=== PATIENT | female | born 1945 | race Caucasian/White ===

== ENCOUNTER → 2017-05-14 07:58 | Outpatient (CLI) | payer MEDICARE ==
[2017-05-14 08:38] LABS: CREATININE - SERUM 1.5 mg/dL (0.6-1.3)
== END | disposition home or self-care (01) ==
LOC: D.LAB 05-13 09:15
PROVIDERS: Family Medicine
DX: R93.8 Abnormal findings on diagnostic imaging of other specified body structures (principal)

== ENCOUNTER → 2017-10-28 09:56 | Outpatient (CLI) | payer MEDICARE | END | disposition home or self-care (01) | LOC: D.MRI 09:56 | DX: K86.2 Cyst of pancreas (principal) ==

== ENCOUNTER 2018-06-17 12:27 | Inpatient (IN) | payer MEDICARE, BC ==
[~2018-06-17] VITALS: Ht 152.4 cm; Wt 87.0 kg
[2018-06-17] MEDS ORDERED: LEVOTHYROXINE137 MCG PO (14:43)
[2018-06-17] MEDS ORDERED: AMIODARONE HCL200 MG PO (14:44)
[2018-06-17] MEDS ORDERED: CALAN80 MG PO (14:44)
[2018-06-17] MEDS ORDERED: LEVOTHYROXINE100 MCG (14:45)
[2018-06-17 14:46] VITALS: BP 140/54; BMI 29.3
[2018-06-17 16:00] VITALS: BP 157/59
[2018-06-17 16:49] LABS: HEMATOCRIT 39.6 % (36.0-48.0); MCHC 32.8 g/dL (31.0-37.0); MCV 94.3 fL (80.0-100.0); MEAN PLATELET VOLUME 10.7 fL (7.4-10.4); PLATELET COUNT 312 10x3/uL (130-400); WBC 23.4 10x3/uL (4.8-10.8)
[2018-06-17 16:52] LABS: APTT 38.5 SECONDS (22.8-39.4); INR 1.32 (0.85-1.17); PROTIME 15.8 SECONDS (11.6-15.0)
[2018-06-17 16:53] LABS: D-DIMER-QUANTITATIVE 1.22 ug/mLFEU (0.20-0.54)
[2018-06-17 17:21] LABS: EOSINOPHILS 1 % (0-7); LYMPHOCYTES 11 % (15-50); MONOCYTES 1 % (2-11); NEUTROPHILS 87 % (40-80); PLATELET ESTIMATE NORMAL
[2018-06-17 18:42] LABS: ALBUMIN 2.4 g/dL (3.4-5.0); ANION GAP 16.9 mmol/L (8-16); BILIRUBIN - TOTAL 0.7 mg/dL (0.2-1.3); CALCIUM 7.9 mg/dL (8.5-10.1); CARBON DIOXIDE 22.2 mmol/L (21.0-32.0); CREATININE - SERUM 1.8 mg/dL (0.6-1.3); POTASSIUM - SERUM 4.1 mmol/L (3.5-5.1); PROTEIN - SERUM 5.1 g/dL (6.4-8.2)
--- NOTE | 2018-06-17 21:03 | NUR ---
REC'D AT [facility] OF SHIFT.IN BED FAMILY AT BEDSIDE PLAYING A GAME DENIES ANY DISCOMFORT AT PRESENT TIME WILL CONTINUE TO MONITOR FOR ANY CHGES. AND FOLLOW CURRENT PLAN OF CARE.
[2018-06-17 21:55] VITALS: BP 151/67
[2018-06-18] VITALS: BP 123/37
--- NOTE | 2018-06-18 05:17 | NUR ---
A/OX4. BREATHING EVEN AND SHALLOW. SOB. DENIES NEEDS AT THIS TIME. WILL CONTINUE POC.
[2018-06-18 05:38] VITALS: BP 146/47
[2018-06-18 08:10] VITALS: BP 140/86
[2018-06-18 10:12] LABS: HEMATOCRIT 34.8 % (36.0-48.0); HEMOGLOBIN 11.7 g/dL (12-16); MCH 30.8 pg (26.0-34.0); MCHC 33.6 g/dL (31.0-37.0); MCV 91.6 fL (80.0-100.0); MEAN PLATELET VOLUME 10.3 fL (7.4-10.4); PLATELET COUNT 303 10x3/uL (130-400); RDW 15.5 % (11.5-14.5); WBC 24.2 10x3/uL (4.8-10.8)
[2018-06-18 10:24] LABS: CALCIUM 7.8 mg/dL (8.5-10.1); CARBON DIOXIDE 20.5 mmol/L (21.0-32.0); CREATININE - SERUM 1.7 mg/dL (0.6-1.3); POTASSIUM - SERUM 3.5 mmol/L (3.5-5.1)
[2018-06-18 11:11] LABS: LYMPHOCYTES 6 % (15-50); MONOCYTES 3 % (2-11); NEUTROPHILS 78 % (40-80); PLATELET ESTIMATE NORMAL; TOXIC GRANULATION OCC
--- NOTE | 2018-06-18 11:57 | NUR ---
PT LYING IN BED, IV IN LEFT WRIST IS POSITIONAL, ASSISTED PT TO RESTROOM WITH LITTLE ASSIST, NO NEEDS VOICED, CONTINUE WITH PLAN OF CARE
[2018-06-18 12:16] VITALS: BP 128/39
--- NOTE | 2018-06-18 14:58 | NUR ---
PT C/O REDNESS AND PAIN IN IV IN LEFT HAND, PT IS A HARD STICK AND VASCULAR ACCESS NURSE STARTED IV IN LEFT HAND/WRIST YESTERDAY, STARTED PT ABX IV YESTERDAY AND REDNESS AND PAIN STARTED WITH IV YESTERDAY, ASSESSED PT ARM AND LOWERED RATE TO 75, SPOKE WITH KRISTINE AND LOWERED IV RATE AGAIN TO 50 UNTIL ARRIVES. CONTINUE WITH PLAN OF CARE
[2018-06-18 16:09] VITALS: BP 137/61
[2018-06-18 20:00] VITALS: BP 161/61
[2018-06-19] VITALS: BP 169/87
--- NOTE | 2018-06-19 02:58 | NUR ---
PT IN BED RESTING QUIETLY WITH FAMILY MEMBER AT BEDSIDE. ALERT AND ORIENTED X4. RESPIRATIONS EVEN AND UNLABORED. NO VISUAL CUES OF DISTRESS NOTED. DENIES ANY OTHER NEEDS AT THIS TIME. BED LOW, SIDE RAILS UP X2. CALL LIGHT IN REACH. WILL CONTINUE TO MONITOR.
[2018-06-19 04:00] VITALS: BP 137/63
[2018-06-19 06:25] LABS: ANION GAP 13.9 mmol/L (8-16); CALCIUM 7.9 mg/dL (8.5-10.1); CREATININE - SERUM 1.5 mg/dL (0.6-1.3); POTASSIUM - SERUM 3.9 mmol/L (3.5-5.1); THYROID STIMULATING HORMONE 8.79 uIU/mL (0.36-3.74)
[2018-06-19 06:35] LABS: HEMATOCRIT 32.5 % (36.0-48.0); MCH 30.6 pg (26.0-34.0); MCHC 33.8 g/dL (31.0-37.0); MCV 90.5 fL (80.0-100.0); MEAN PLATELET VOLUME 10.2 fL (7.4-10.4); PLATELET COUNT 276 10x3/uL (130-400); RBC 3.59 10x6/uL (4.00-5.40); RDW 15.6 % (11.5-14.5)
[2018-06-19 08:03] LABS: ANISOCYTOSIS OCC; HYPOCHROMASIA OCC; LYMPHOCYTES 5 % (15-50); MONOCYTES 9 % (2-11); NEUTROPHILS 77 % (40-80); PLATELET ESTIMATE NORMAL
[2018-06-19 08:29] VITALS: BP 126/53
--- NOTE | 2018-06-19 08:34 | NUR ---
PT AOX4 RESP EVEN AND NONLABORED PT DENIES NEEDS AT THIS TIME IV TO LEFT WRIST PATENT AND INTACT AT THIS TIME SRX2 BED AT LOWEST SETTING CALL LIGHT WITHIN REACH WILL CONTINUE TO MONITOR
[2018-06-19 11:42] VITALS: BP 114/49
[2018-06-19 16:13] VITALS: BP 124/85
[2018-06-19 16:15] LABS: APPEARANCE CLEAR (CLEAR); COLOR YELLOW (YELLOW)
[2018-06-19 16:16] LABS: BILIRUBIN NEGATIVE (NEGATIVE); GLUCOSE NEGATIVE (NEGATIVE); KETONE NEGATIVE (NEGATIVE); NITRITE NEGATIVE (NEGATIVE); PROTEIN NEGATIVE (NEGATIVE); SPECIFIC GRAVITY 1.025 (1.005-1.020); UROBILINOGEN NORMAL (NORMAL)
[2018-06-19 16:26] LABS: RED CELLS - URINE 0-5 /hpf (0-5); WHITE CELLS - URINE 0-5 /hpf (0-5)
[2018-06-19 16:27] LABS: BACTERIA MANY /hpf (NONE SEEN)
[2018-06-19 20:28] VITALS: BP 122/45
--- NOTE | 2018-06-20 03:30 | NUR ---
PT RESTING QUIETLY, EYES CLOSED. RESP EVEN, UNLABORED. NO DISTRESS NOTED. CONTINUE HUNTER'S PLAN OF CARE.
[2018-06-20 04:58] VITALS: BP 125/53
[2018-06-20 07:36] LABS: BASOPHILS 0.1 % (0-2); EOSINOPHILS 0.5 % (0-7); HEMATOCRIT 33.8 % (36.0-48.0); HEMOGLOBIN 11.3 g/dL (12-16); IMMATURE GRANULOCYTES 0.5 % (0-5); LYMPHOCYTES 4.4 % (15-50); MCH 30.8 pg (26.0-34.0); MCHC 33.4 g/dL (31.0-37.0); MCV 92.1 fL (80.0-100.0); MEAN PLATELET VOLUME 10.6 fL (7.4-10.4); MONOCYTES 6.9 % (2-11); NEUTROPHILS 87.6 % (40-80); PLATELET COUNT 298 10x3/uL (130-400); RBC 3.67 10x6/uL (4.00-5.40); RDW 15.8 % (11.5-14.5); WBC 24.7 10x3/uL (4.8-10.8)
[2018-06-20 07:52] LABS: ANION GAP 16.7 mmol/L (8-16); CALCIUM 7.8 mg/dL (8.5-10.1); CARBON DIOXIDE 21.5 mmol/L (21.0-32.0); CREATININE - SERUM 1.5 mg/dL (0.6-1.3); POTASSIUM - SERUM 4.2 mmol/L (3.5-5.1)
--- NOTE | 2018-06-20 08:00 | NUR ---
ASSESSMENT PER FLOW SHEET. PT IS WITHOUT DISTRESS.CALL LIGHT IN REACH
[2018-06-20 08:34] VITALS: BP 132/47
[2018-06-20 15:28] VITALS: BP 126/54
--- NOTE | 2018-06-20 18:00 | NUR ---
IV LEFT FOREARM VERY TENDER AND NOT FLUSHING WELL. DCD WITH CATH TIP INTACT
--- NOTE | 2018-06-20 18:08 | NUR ---
IV ATTEMPTED TO LEFT ARM X2 STICKS USING ASEPTIC TECH.
--- NOTE | 2018-06-20 19:47 | NUR ---
RECEIVED REPORT, ASSUMED CARE, ASSESSMENT COMPLETE, DENIES NEEDS, FAMILY AT BEDSIDE, CALL LIGHT IN REACH, BED LOWEST POSIITON, SITTING UP ON BEDSIDE, WILL CONTINUE TO MONITOR
--- NOTE | 2018-06-20 22:30 | NUR ---
PT SATING 91% 7L HFNC, HELPED TO BATHROOM AND BACK TO BED, RECHECKED O2 SAT NOW SATING AT 71%, PT SHORT OF BREATH, STATED HAVING A HARD TIME CATCHING HER BREATH, RESPIRATORY CALLED STATED SHE'D BE DOWN SHORTLY TO GIVE BREATHING TREATMENT
--- NOTE | 2018-06-20 23:00 | NUR ---
RESPIRATORY CHECKING PT, SATING 87% NOW PLACED ON 11L HFNC, BREATHING TREATMENT GIVEN
--- NOTE | 2018-06-20 23:20 | NUR ---
RECHECKED O2 SAT NOW SATING 97%, WILL CONTINUE TO MONITOR
--- NOTE | 2018-06-20 23:35 | NUR ---
CALLED RADIOLOGY ABOUT X-RAY CONCERNING CVL PLACEMENT, FILM HAS NOT BEEN SENT TO BE READ, STATED THEY WOULD SEND IT NOW
[2018-06-21] VITALS (23 sets, daily range): BP systolic 101–126; BP diastolic 4–78
--- NOTE | 2018-06-21 | NUR ---
DR GONZALEZ STATED HE REVIEWED THE XRAY, WE CAN USE IT NOW
--- NOTE | 2018-06-21 00:20 | NUR ---
CALLED DR JHA, PT SATING 78% WHILE LYING IN BED ON 11L HFNC, HE ORDERED A ABG, AWAITING RESULTS
--- NOTE | 2018-06-21 00:45 | NUR ---
CALLED ABG RESULTS TO DR JHA, ORDERED 40MG LASIX IV NOW, TRANSFER TO ICU, PLACE ON BIPAP
--- NOTE | 2018-06-21 01:46 | NUR ---
PATIENT ARRIVED TO ICU ROOM 2313 ACCOMPANINED BY HOSPITAL STAFF, PATIENT TRANSFERED TO ICU BED, ALL MONITORING EQUIPMENT ATTACHED PER HOSPITAL PROTOCOL.
--- NOTE | 2018-06-21 02:00 | NUR ---
16F CARLTON INSERTED FOR ACCURATE I&O RECORDS, 250 CC CLEAR YELLOW IMMEDIATE URINE OUTPUT
--- NOTE | 2018-06-21 03:00 | NUR ---
SHIFT ASSESSMENT COMPLETE, PER NURSING FLOWSHEET, BIPAP IN PLACE @ 90%, WILL CONTINUE TO MONITOR
--- NOTE | 2018-06-21 05:00 | NUR ---
PATIENT REPOSITIONED, VSS, NO OTHER NEEDS VOICED OR NOTED AT THIS TIME
[2018-06-21 06:46] LABS: BASOPHILS 0.1 % (0-2); EOSINOPHILS 0.2 % (0-7); HEMATOCRIT 33.9 % (36.0-48.0); HEMOGLOBIN 11.4 g/dL (12-16); IMMATURE GRANULOCYTES 0.6 % (0-5); LYMPHOCYTES 3.6 % (15-50); MCH 30.6 pg (26.0-34.0); MCHC 33.6 g/dL (31.0-37.0); MCV 91.1 fL (80.0-100.0); MEAN PLATELET VOLUME 10.2 fL (7.4-10.4); MONOCYTES 7.2 % (2-11); NEUTROPHILS 88.3 % (40-80); PLATELET COUNT 291 10x3/uL (130-400); RBC 3.72 10x6/uL (4.00-5.40); RDW 15.8 % (11.5-14.5); WBC 26.2 10x3/uL (4.8-10.8)
[2018-06-21 06:56] LABS: ANION GAP 14.9 mmol/L (8-16); CALCIUM 7.5 mg/dL (8.5-10.1); CREATININE - SERUM 1.8 mg/dL (0.6-1.3); POTASSIUM - SERUM 3.9 mmol/L (3.5-5.1)
--- NOTE | 2018-06-21 07:00 | NUR ---
RECEIVED PATIENT AT THIS TIME. BEDSIDE SHIFT REPORT COMPLETE. SHIFT ASSESSMENT COMPLETE PER FLOWSHEET. VSS, WILL MONITOR CLOSELY.
--- NOTE | 2018-06-21 09:00 | NUR ---
PT FAMILY PRESENT AT THE BEDSIDE. UPDATE GIVEN. VSS, WILL CONTINUE CLOSE ICU OBSERVATION.
--- NOTE | 2018-06-21 12:17 | NUR ---
PT FAMILY PRESENT IN THE ROOM. UPDATE GIVEN. PT PLACED ON HIGH FLOW NASAL CANNULA TO EAT LUNCH.
--- NOTE | 2018-06-21 13:00 | NUR ---
PATIENT RESTING COMFORTABLY WITH EYES CLOSED AT THIS TIME. FAMILY IS PRESENT AT THE BEDSIDE. VSS, WILL CONTINUE TO MONITOR CLOSELY.
--- NOTE | 2018-06-21 15:00 | NUR ---
REASSESSMENT COMPLETE PER FLOWSHEET. NO ACUTE CHANGES NOTED AT THIS TIME. PT REESTING COMFORTABLY. VSS, WILL CONTINUE TO MONITOR CLOSELY.
--- NOTE | 2018-06-21 17:15 | NUR ---
PT FAMILY PRESENT AT THE BEDSIDE. PATIENT TURNED FOR COMFORT AT THIS TIME. VSS, WILL CONTINUE TO MONITOR CLOSELY.
--- NOTE | 2018-06-21 19:30 | NUR ---
ASSESSMENT COMPLETE PER NURSING FLOWSHEET, PATIENT REPOSITIONED, BIPAP MASK PLACED BACK ON THIS PATIENT AT 60%, C/L IN REACH
--- NOTE | 2018-06-21 21:00 | NUR ---
PATIENT REPOSITIONED, BIPAP MASK REMAINS IN PLACE AT 60% TO MAINTAIN ADEQUATE OXYGENATION, CONTINUE POC
--- NOTE | 2018-06-21 23:00 | NUR ---
RE-ASSESSMENT COMPLETE, PER NURSING FLOWSHEET, PATIENT REPOSITIONED, ORAL CARE PROVIDED, BIPAP O2 INCREASED TO 80% SECONDARY TO DROPPING OXYGEN LEVEL, WILL CONTINUE TO MONITOR
[2018-06-22] VITALS (24 sets, daily range): BP systolic 89–136; BP diastolic 43–93; BMI 32.0
--- NOTE | 2018-06-22 01:00 | NUR ---
PATIENT REPOSITIONED, CARLTON CARE PROVIDED, NO OTHER NEEDS VOICED OR NOTED AT THIS TIME
--- NOTE | 2018-06-22 03:00 | NUR ---
RE-ASSESSMENT COMPLETE, PATIENT REPOSITIONED, ORAL CARE PROVIDED, C/L IN REACH
--- NOTE | 2018-06-22 05:00 | NUR ---
PATIENT REPOSITIONED, PARTIAL LINEN CHANGE, O2 PROVIDED, BIPAP MASK ADJUSTED, O2 LEVEL DECREASED TO 70% BASED ON THIS A.M. ABG, CONTINUE POC
[2018-06-22 05:07] LABS: BASOPHILS 0.2 % (0-2); EOSINOPHILS 0.3 % (0-7); HEMATOCRIT 32.9 % (36.0-48.0); HEMOGLOBIN 11.1 g/dL (12-16); IMMATURE GRANULOCYTES 0.5 % (0-5); LYMPHOCYTES 3.2 % (15-50); MCH 30.2 pg (26.0-34.0); MCHC 33.7 g/dL (31.0-37.0); MCV 89.4 fL (80.0-100.0); MEAN PLATELET VOLUME 10.2 fL (7.4-10.4); MONOCYTES 7.6 % (2-11); NEUTROPHILS 88.2 % (40-80); PLATELET COUNT 267 10x3/uL (130-400); RBC 3.68 10x6/uL (4.00-5.40); RDW 15.3 % (11.5-14.5); WBC 25.6 10x3/uL (4.8-10.8)
[2018-06-22 05:17] LABS: ANION GAP 15.4 mmol/L (8-16); CALCIUM 7.3 mg/dL (8.5-10.1); CARBON DIOXIDE 22.1 mmol/L (21.0-32.0); POTASSIUM - SERUM 3.5 mmol/L (3.5-5.1)
--- NOTE | 2018-06-22 07:45 | NUR ---
SHIFT REPORT RECEIVED. PT ON BIPAP AT 60% WITH O2 SAT 96%. HR IN 60S NORMAL SINUS. BP STABLE. NO FEVER. BRUISING NOTED ON BILAT UE. HAS RIJ WITH ABX INFUSING AT THIS TIME. CARLTON IN PACE WITH YELLOW URINE NOTED. PT REPORTS HAVING DIFFICULTY BREATHING BUT IS WANTING BIPAP OFF. SHIFT ASSESSMENT COMPLETED. PULLED UP AND REPOSITIONED FOR COMFORT. WILL CONTINUE TO MONITOR.
--- NOTE | 2018-06-22 08:11 | NUR ---
PT TOOK OFF BIPAP FOR ABOUT 10MINUTES TO GIVE HER SOMETHING TO DRINK AND TO EAT. SHE WAS ABLE TO EAT A FEW BITES OF EGSS AND DRANK 120ML OF ORANGE JUICE. PT DESATURATED TO 70S. PT PLACED BACK ON BIPAP. SHE STATED THAT SHE DIDN'T WANT THE BIPAP BACK ON. EXPLAINED TO PT THAT THE BIPAP WAS HELPING HER BREATH. WILL CONTINUE TO MONITOR.
--- NOTE | 2018-06-22 09:49 | NUR ---
BIPAP REMOVED FOR 0900 MEDICATIONS. PT DESATURED INTO LOW 80S. BIPAP PLACED BACK. DAUGHTER AT BEDSIDE. WILL COTNINUE TO MONITOR.
--- NOTE | 2018-06-22 12:34 | NUR ---
TOOK OFF BIPAP FOR LUNCH. PT ABLE TO EAT A FEW BITES. O2 SAT DROPPED TO LOW 80S. PLACED BACK ON BIPAP. DAUGHTER AT BEDSIDE. DAUGHTER SPOKE WITH DR. MURPHY TODAY. PULMONOLOGY HAS BEEN CONSULTED.
--- NOTE | 2018-06-22 14:11 | NUR ---
BIPAP REMOVED FOR FEW MINUTES TO ALLOW PT TO HAVE SOME ICE WATER. MOUTH WAS PROVIDED TO HAVE PT SINCE MOUTH OUT. DAUGHTER AT BEDSIDE. NO FURTHER NEEDS AT THIS TIME. WILL CONTINUE TO MONITOR.
--- NOTE | 2018-06-22 15:08 | NUR ---
DR. EVERETT AT BEDSIDE. WANTS PT ON HIGH FLOW NC FOR MEALS. PT RESTING COMFORTABLY. WILL CONTINUE TO MONITOR.
--- NOTE | 2018-06-22 15:48 | NUR ---
TROUGH DRAWN INCORRECTLY. WILL TRY AGAIN PRIOR TO MIDNIGHT DOSE TONIGHT
--- NOTE | 2018-06-22 16:50 | NUR ---
BIPAP REMOVED FOR FEW MINUTES TO GIVE PT A DRINK OF WATER.
--- NOTE | 2018-06-22 17:46 | NUR ---
TOOK OFF BIPAP AT THIS TIME TO EAT DINNER. ATE A FEW BITES OF BROCCOLI, PORK CHOP, RISE, ROLL AND CAKE. DESATED TO LOW 80S. PLACED BACK ON BIPAP AT 50%. FAMILY AT BEDSIDE AT THIS TIME. WILL CONTINUE TO MONITOR.
--- NOTE | 2018-06-22 17:48 | MORECARE ---
CASE MANAGEMENT DISCHARGE SUMMARY PATIENT: TAVO HICKEY UNIT: [id number] ADM DATE: 06/17/18 AGE: 73 : 44 SEX: F [facility] [address] AUTHOR: [place]S PHYSICIAN: REFERRING PHYSICIAN: PETROS JHA MD DATE OF SERVICE: 06/22/18 Discharge Plan Patient Name: TAVO HICKEY Facility: [facility]:[place] : 1945 Planned Disposition: Anticipated Discharge Date: Discharge Date: Expected LOS: Initial Reviewer: [email or web address] Initial Review Date: 06/22/2018 Generated: 06/22/18 6:48 pm Patient Name: TAVO HICKEY Page [id number] at 0341 All edits/amendments must be made on the electronic document DICTATION DATE: 06/22/181747 COMPUTERIZED MILL MILL RECORDER: JONG 06/22/181747 RPT#: [id number] NC DATE: STATUS: ADM IN [facility] [address] [place] [address] END OF REPORT
--- NOTE | 2018-06-22 17:56 | MORECARE ---
CASE MANAGEMENT DISCHARGE SUMMARY PATIENT: TAVO HICKEY UNIT: [id number] ADM DATE: 06/17/18 AGE: 73 : 44 SEX: F ROOM/BED: D.[facility] AUTHOR: [place]S PHYSICIAN: REFERRING PHYSICIAN: PETROS JHA MD DATE OF SERVICE: 06/22/18 Discharge Plan Patient Name: TAVO HICKEY [facility] : 1945 Planned Disposition: Anticipated Discharge Date: Discharge Date: Expected LOS: Initial Reviewer: [email or web address] Initial Review Date: 06/22/2018 Generated: 06/22/18 6:55 pm DCPIA - Discharge Planning Initial Assessment Updated by [email or web address]: Monika Boyle on 06/22/18 5:52 pm * Is the patient Alert and Oriented? Yes * How many steps to enter\exit or inside your home? * PCP KB * Pharmacy [facility] * Preadmission Environment Home Alone * ADLs Independent * Equipment None * List name and contact numbers for known caregivers / representatives who currently or will assist patient after discharge: JEANMARIE MONTE - WILFREDO - [phone] * Verbal permission to speak to the caregivers and representatives has been obtained from the patient. N/A * Community resources currently utilized None * Additional services required to return to the preadmission environment? No * Can the patient safely return to the preadmission environment? Yes * Has this patient been hospitalized within the prior 30 days at any hospital? No Last DP export: 06/22/18 4:48 pm Patient Name: TAVO HICKEY Page [phone] at 1756 All edits/amendments must be made on the electronic document DICTATION DATE: 06/22/181754 COMMIS CHEF: JONG 06/22/181754 RPT#: [id number] DC DATE: STATUS: ADM IN [facility] [address] [place] [address] END OF REPORT
--- NOTE | 2018-06-22 18:12 | MORECARE ---
CASE MANAGEMENT DISCHARGE SUMMARY PATIENT: TAVO HICKEY UNIT: [id number] ADM DATE: 06/17/18 AGE: 73 : 44 SEX: F ROOM/BED: D.2313 AUTHOR: JEANA,DOC PHYSICIAN: REFERRING PHYSICIAN: PETROS JHA MD DATE OF SERVICE: 06/22/18 Discharge Plan Patient Name: TAVO HICKEY Facility: [facility]:[place] : 1945 Planned Disposition: Anticipated Discharge Date: Discharge Date: Expected LOS: Initial Reviewer: [email or web address] Initial Review Date: 06/22/2018 Generated: 06/22/18 7:11 pm Comments DCP- Discharge Planning Updated by [email or web address]: Monika Boyle on 06/22/18 5:[address] LATE ENTRY 06/22/18 @ 1215 Patient Name: TAVO HICKEY Admission Status: Urgent Accout number: [id number] Admission Date: 06-17-2018 : 1945 Admission Diagnosis:PNEUMONIA, UNSPECIFIED ORGANISM Attending: PETROS JHA Current LOS: 5 Anticipated DC Date: Planned Disposition: Primary Insurance: MEDICARE A & B Discharge Planning Comments: CM met with patient and daughter at bedside. Patient is currently on BIPAP and unable to speak but patients daughter Jeanmarie was able to answer intake questions. Patient lived at home with spouse prior to admission until recently. Patients spouse has dementia and [facility] [place]. Patient will be going home alone when discharged. Jeanmarie states she has just worn herself out trying to take care of him. Patient may need some services upon discharge or possibly home . CM will continue to follow and assist as needed with discharge planning / needs. Slip Dumper: Monika Boyle DCPIA - Discharge Planning Initial Assessment Updated by [email or web address]: Monika Boyle on 06/22/18 5:52 pm * Is the patient Alert and Oriented? Yes * How many steps to enter\exit or inside your home? * PCP KB * Pharmacy [facility] * Preadmission Environment Home Alone * ADLs Independent * Equipment None * List name and contact numbers for known caregivers / representatives who currently or will assist patient after discharge: JEANMARIE MONTE - DAUGHTER - [phone] * Verbal permission to speak to the caregivers and representatives has been obtained from the patient. N/A * Community resources currently utilized None * Additional services required to return to the preadmission environment? No * Can the patient safely return to the preadmission environment? Yes * Has this patient been hospitalized within the prior 30 days at any hospital? No Last DP export: 06/22/18 4:55 pm Patient Name: TAVO HICKEY Page 34442 at 1812 All edits/amendments must be made on the electronic document DICTATION DATE: 06/22/181810 MACHINE PRESSER: JONG 06/22/181810 RPT#: [id number] DC DATE: STATUS: ADM IN [facility] [address] [place] [address] END OF REPORT
[2018-06-23] VITALS (22 sets, daily range): BP systolic 99–1202; BP diastolic 46–80; Ht 152.4 cm; Wt 87.0 kg
[2018-06-23 06:00] LABS: BASOPHILS 0.2 % (0-2); EOSINOPHILS 1.1 % (0-7); HEMATOCRIT 32.2 % (36.0-48.0); HEMOGLOBIN 11.2 g/dL (12-16); IMMATURE GRANULOCYTES 0.8 % (0-5); LYMPHOCYTES 4.2 % (15-50); MCH 30.9 pg (26.0-34.0); MCHC 34.8 g/dL (31.0-37.0); MCV 88.7 fL (80.0-100.0); MEAN PLATELET VOLUME 10.3 fL (7.4-10.4); MONOCYTES 6.9 % (2-11); NEUTROPHILS 86.8 % (40-80); PLATELET COUNT 264 10x3/uL (130-400); RBC 3.63 10x6/uL (4.00-5.40); RDW 15.6 % (11.5-14.5); WBC 25.4 10x3/uL (4.8-10.8)
[2018-06-23 06:08] LABS: ALBUMIN 1.5 g/dL (3.4-5.0); ANION GAP 15.6 mmol/L (8-16); BILIRUBIN - TOTAL 2.12 mg/dL (0.2-1.3); CALCIUM 7.5 mg/dL (8.5-10.1); CARBON DIOXIDE 20.9 mmol/L (21.0-32.0); CREATININE - SERUM 1.9 mg/dL (0.6-1.3); POTASSIUM - SERUM 3.5 mmol/L (3.5-5.1); PROTEIN - SERUM 4.7 g/dL (6.4-8.2)
--- NOTE | 2018-06-23 16:44 | OP ---
PATIENT NAME: TAVO HICKEY MEDICAL RECORD: [id number] :[birth year] LOCATION:[facility] D.2313 ADMISSION DATE:06/17/18 SURGEON: TRICIA GONZALEZ MD DATE OF OPERATION: 06/20/2018 PREOPERATIVE DIAGNOSIS: Pneumonia in need of IV access for IV antibiotics. POSTOPERATIVE DIAGNOSIS: Pneumonia in need of IV access for IV antibiotics. PROCEDURE: Insertion of right internal jugular triple lumen central venous catheter. SURGEON: Tricia Gonzalez MD INSURANCE INSPECTOR: None. BLOOD LOSS: Minimal. ANESTHESIA: Local. COMPLICATIONS: None. The risks, possible complications and alternatives to the procedure were discussed with the patient. She elects to proceed. The entire procedure was performed in the presence of a female nurse. OPERATIVE COURSE: The patient was positioned in the Trendelenburg position. The right neck was sterilely prepped and draped. A local anesthetic was used to infiltrate the skin and subcutaneous tissues at the base of the right neck. The right internal jugular vein was percutaneously accessed in an antegrade fashion. A guidewire passed easily. A small skin milana was accomplished. A vessel dilator was used to dilate a subcutaneous tract. A 16-cm triple lumen central venous catheter was inserted to the hub. It was sutured in place times 3. All lumens flushed easily and aspirated dark, nonpulsatile blood. A stat portable chest x-ray is pending. TRANSINT:[id number] Voice Confirmation ID: [id number] DOCUMENT ID: [id number] TRICIA GONZALEZ MD at 1644 CC: PETROS JHA MD [id number] DICTATION DATE: 06/20/182211 BICYCLE MESSENGER: 06/20/182230 ADM IN [facility] [address] [place] [address]
--- NOTE | 2018-06-23 18:51 | NUR ---
0700 ASLEEP WEARING BPAP 100% EASILY AWAKENS
--- NOTE | 2018-06-23 18:51 | NUR ---
0900 INSTRUCTED NPO WHILE ON BPAP R/T DESATS QUICKLY
--- NOTE | 2018-06-23 18:54 | NUR ---
1100 MOUTH CARE PROVIDED PPULLED UP IN BED TO AID IN DEEP INSPIRATIONS
--- NOTE | 2018-06-23 18:57 | NUR ---
1500 FAMILY AT BEDSIDE UPDATE GIVEN EMOTIONAL SUPPORT PROVIDED
--- NOTE | 2018-06-23 19:05 | NUR ---
1700 PATIENT REMAINS AT 97% ON BPAP
--- NOTE | 2018-06-23 19:46 | NUR ---
PAGEJose GABRIEL REGARDING PRN LAXATIVE ORDER. MARCOS KURTZ RETURNED CALL. COLACE 100MG BID AND KUB ORDERED. PT NOT COMPLAINING OF PAIN OR DISCOMFORT. NOT COMPLAINING OF URGENCY TO HAVE BM. ORDERS RECEIVED, VERIFIED, AND READ BACK.
--- NOTE | 2018-06-23 19:48 | NUR ---
BEDSIDE SHIFT REPORT GIVEN BY DEPARTING RN. PT LAYING IN BED ON BIPAP 100% FIO2.PT CONCERNED ABOUT NOT HAVING BM IN A FEW DAYS AND REQUESTS ENEMA. EDUCATION PROVIDED. ASSESSMENT COMPLETE. SAFETY MEASURES IN PLACE. CBIR.
--- NOTE | 2018-06-23 20:00 | NUR ---
FAMILY AT BEDSIDE. CODE STATUS DISCUSSED WITH PT AND FAMILY. REMAINS FULL CODE AT THIS TIME. FAMILY WANTS TO DISCUSS FURTHER. PT REFUSES RESTORIL PILL. FAMILY THINKS THE MEDICATION MIGHT BE CONTRIBUTING TO ILLNESS BY LOWERING RESPIRATION DRIVE.
--- NOTE | 2018-06-23 23:48 | NUR ---
PT SLEEPING SHOWING NO S/S OF DISTRESS. REASSESSMENT COMPLETE. NO CHANGES NOTED IN PT CONDITION. SAFETY MEASURES IN PLACE. REPOSITIONED FOR COMFORT.
[2018-06-24] VITALS (24 sets, daily range): BP systolic 117–155; BP diastolic 50–90
--- NOTE | 2018-06-24 03:24 | NUR ---
REASSESSMENT COMPLETE. NO NEW CHANGES NOTED. VSS. REPOSITIONED FOR COMFORT.
[2018-06-24 06:11] LABS: HEMOGLOBIN 11.7 g/dL (12-16); MCH 30.5 pg (26.0-34.0); MCHC 34.4 g/dL (31.0-37.0); MCV 88.5 fL (80.0-100.0); MEAN PLATELET VOLUME 10.4 fL (7.4-10.4); PLATELET COUNT 312 10x3/uL (130-400); RBC 3.84 10x6/uL (4.00-5.40); RDW 15.7 % (11.5-14.5); WBC 28.8 10x3/uL (4.8-10.8)
[2018-06-24 06:12] LABS: ALBUMIN 1.6 g/dL (3.4-5.0); BILIRUBIN - TOTAL 2.23 mg/dL (0.2-1.3); CALCIUM 7.6 mg/dL (8.5-10.1); CARBON DIOXIDE 20.4 mmol/L (21.0-32.0); CREATININE - SERUM 1.8 mg/dL (0.6-1.3); POTASSIUM - SERUM 4.4 mmol/L (3.5-5.1)
--- NOTE | 2018-06-24 08:32 | NUR ---
0700 AWAKE ALERT, REPOSITION IN BED FOR COMFORT ASSESSMENT COMPLETE ENCOURAGED TO COUGH AND DEEP BREATHE PT DEMONSTRATED SLOW DEEP BREATHING AND COUGHING 02 SAT 93% ON BPAP AT 60% REFUSED SIP OF WATER AT THIS TIME
[2018-06-24 09:03] LABS: EOSINOPHILS 1 % (0-7); LYMPHOCYTES 5 % (15-50); MONOCYTES 4 % (2-11); NEUTROPHILS 84 % (40-80); PLATELET ESTIMATE NORMAL; ROULEAUX 1+
--- NOTE | 2018-06-24 09:30 | NUR ---
NUTRITION F/U PT RESTING, ON BIPAP. PROCALAMINE @ 75 CC/HR. NURSING REPORTS PT UNABLE TO EAT BREAKFAST THIS AM. WILL CONTINUE TO MONITOR PT PROGRESS. RD FOLLOWING
--- NOTE | 2018-06-24 16:07 | NUR ---
0900 FAMILY AT BEDSIDE UPDATE PROVIDED PATIENT SMILING AND COMFORTABLE
--- NOTE | 2018-06-24 16:08 | NUR ---
1100 LUNCH TRAY PROVIDED PLACED ON HIGH FLOW AT 10L. TOLERATED WELL
--- NOTE | 2018-06-24 16:09 | NUR ---
1300 PLACED BACK ON BPAP AT 60% FAMILY REMAINS AT BEDSIDE
--- NOTE | 2018-06-24 16:10 | NUR ---
1500 REPOSITIONED FOR COMFORT PER PT REQLULEST TO TURN TO LEFT SIDE
--- NOTE | 2018-06-24 19:13 | NUR ---
1700 BPAP OFF FOR MEAL HIGH FLOW AT 10L
--- NOTE | 2018-06-24 19:14 | NUR ---
1900 PLACED BACK ON BPAP AT 60% 02
--- NOTE | 2018-06-24 19:45 | CN ---
PATIENT NAME:TAVO HICKEY MEDICAL RECORD: [id number] : 43 LOCATION:[id number] ADMIT DATE: 06/17/18 ACCOUNT: [id number] CONSULTING PHYSICIAN: STACEY EVERETT MD REFERRING PHYSICIAN: PETROS JHA MD DATE OF CONSULTATION: 06/22/2018 CONSULT REQUESTING PHYSICIAN: Marry Dallas MD REASON FOR CONSULTATION: Acute hypoxic respiratory failure, bilateral pneumonia. HISTORY OF PRESENT ILLNESS: Ms. Hickey is a 73-year-old female. She was admitted on the 17 of June with bilateral pneumonia. The patient's oxygenation was getting worse and brought into the ICU. She is on BiPAP. The history was taken mainly by reviewing the patient's note and talking to the nursing staff. The patient could be awakened. She is also having significant leukocytosis. REVIEW OF THE SYSTEMS: The detail is not obtainable as in history of present illness. PAST MEDICAL HISTORY: 1. Atrial fibrillation. 2. Hypertension. 3. History of pneumonia. 4. History of osteoarthritis. PAST SURGICAL HISTORY: Hysterectomy. ALLERGIES: SHE IS ALLERGIC TO BACTRIM. MEDICATIONS: [employer]Novate[employer] was reviewed. PERSONAL AND SOCIAL HISTORY: The patient is nonsmoker and nondrinker. FAMILY HISTORY: Noncontributory. PHYSICAL EXAMINATION: GENERAL: The patient is now lying comfortably in bed. She is in mild respiratory distress. VITAL SIGNS: The blood pressure is 109/49, pulse is 60, respiration is 21, temperature is 98.6, and SpO2 is 98% on 60 liter BiPAP. HEENT: Conjunctivae are pink. Sclerae are not icteric. NECK: Neck is supple. No JVD. CHEST: There are bilateral crackles. No wheezing. HEART: Rhythm regular. Normal sound. No murmur. ABDOMEN: Abdomen is soft. Bowel sounds present. No hepatosplenomegaly. RECTAL: Deferred. EXTREMITIES: No cyanosis. No clubbing. No pedal edema. CENTRAL NERVOUS SYSTEM: The patient is awake and alert. There is no obvious cranial nerve abnormality. The gait was not tested. DIAGNOSTIC DATA: Chest radiograph; there are bilateral lower lobe infiltrates. CONSULT REPORT [id number] TAVO HICKEY LABORATORY DATA: CBC; WBC 25.6, hemoglobin 11.1, hematocrit 32.9, and platelet count is 267. Chemistry; sodium 137, potassium 3.5, BUN is 37, creatinine is 2, and bicarb is 22.1. IMPRESSION: 1. Acute hypoxic respiratory failure. 2. Bilateral pneumonia, consistent with community-acquired pneumonia. 3. Leukocytosis secondary to pneumonia. 4. Acute renal failure. 5. Atrial fibrillation. 6. Hypertension. RECOMMENDATION: 1. Continue vancomycin and Zosyn. I will add Levaquin to cover for gram-negative kalen atypical and questionable MRSA. 2. Continue BiPAP. 3. Supplemental oxygen when the patient is eating t.i.d. 4. DVT prophylaxis. 5. Follow up labs and chest radiograph. Dr. Dallas, thank you for involving me in the care of Ms. Hickey. TRANSINT:[id number] Voice Confirmation ID: [id number] DOCUMENT ID: [id number] STACEY EVERETT MD at 1945 CC: [id number] DICTATION DATE: 06/22/18 1536 UNDERCOVER AGENT: 06/22/18 1653 ADM IN [facility] [address] [place] [address]
--- NOTE | 2018-06-24 20:00 | NUR ---
VSS NO S/S OF DISTRESS CALL LIGHT IN REACH DAUGHTER AT BEDSIDE, ALL NEEDS MET ALL SAFETY MEASURES IN PLACE
--- NOTE | 2018-06-24 22:00 | NUR ---
PT AND FAMILY REFUSED RESTORIL, ALL OTHER MEDS GIVEN, PT C/O RESTLESS LEGS, PT POSTITIONED FOR COMFORT, ALL NEEDS MET AT THIS TIME.
[2018-06-25] VITALS (24 sets, daily range): BP systolic 103–159; BP diastolic 43–75
--- NOTE | 2018-06-25 00:15 | NUR ---
PT RESTING NO S/S OF DISTRESS TOLERATING BIPAP WELL, WILL CONTINUE TO MONITOR.
--- NOTE | 2018-06-25 05:47 | NUR ---
VSS NO S/S OF DISTRESS, CARLTON EMPTIED, IV PUMPS CLEARED, PT POSITIONED FOR COMFORT ALL NEEDS MET ALL SAFETY MEASURES IN PLACE WILL CONTINUE TO MONITOR.
--- NOTE | 2018-06-25 06:46 | NUR ---
PT C/O PAIN IN LEGS TYLENOL GIVEN.
--- NOTE | 2018-06-25 07:40 | NUR ---
SHIFT REPORT RECEIVED. PT APPEARS ASLEEP ON BIPAP AT 60%. AROUSES TO VOICE. REPORTS PAIN 8/10 ON FEET. STATES THAT SHE WAS RECENTLY GIVEN TYLENOL. RIJ CVL WITH PROCAL AT 75ML/HR AND NS AT 20ML/HR. CARLTON IN PLACE WITH CONCENTRATED YELLOW URINE NOTED. HR 62 NORMAL SINUS. HAS NOT HAD BM SINCE 06/18. SHIFT ASSESSMENT COMPLETED. MEAL TRAY DELIVERED TO ROOM. PT REFUSED TRAY AT THIS TIME. WILL NOTIFY NURSE WHEN READY TO EAT. NO FURTHER NEEDS. WILL CONTINUE TO MONITOR.
--- NOTE | 2018-06-25 08:52 | NUR ---
SPOKE WITH DAUGHTER ON THE PHONE. PASSCODE VERIFIED. BRIEF UPDATE GIVEN. WILL BE BY TO SEE PATIENT DURING 1200 VISITATION TIME.
[2018-06-25 09:36] LABS: HEMATOCRIT 34.4 % (36.0-48.0); HEMOGLOBIN 12.1 g/dL (12-16); MCH 31.5 pg (26.0-34.0); MCHC 35.2 g/dL (31.0-37.0); MCV 89.6 fL (80.0-100.0); MEAN PLATELET VOLUME 9.4 fL (7.4-10.4); PLATELET COUNT 312 10x3/uL (130-400); RBC 3.84 10x6/uL (4.00-5.40); RDW 17.3 % (11.5-14.5); WBC 30.7 10x3/uL (4.8-10.8)
[2018-06-25 09:41] LABS: ALBUMIN 1.7 g/dL (3.4-5.0); ANION GAP 16.9 mmol/L (8-16); BILIRUBIN - TOTAL 1.61 mg/dL (0.2-1.3); CALCIUM 8.2 mg/dL (8.5-10.1); CARBON DIOXIDE 20.3 mmol/L (21.0-32.0); CREATININE - SERUM 1.9 mg/dL (0.6-1.3); POTASSIUM - SERUM 4.2 mmol/L (3.5-5.1)
--- NOTE | 2018-06-25 09:42 | NUR ---
PULLED UP IN BED. OFF BIPAP AT THIS TIME. ON 12L OF O2 VIA HIGH FLOW NC. MEAL TRAY SET UP AT THIS TIME. AM MEDS GIVEN. NO FURTHER NEEDS AT THIS TIME. WILL CONTINUE TO MONITOR.
--- NOTE | 2018-06-25 09:51 | NUR ---
NUTRITION F/U PROCALAMINE @ 75 CC/HR. PT EATING BREAKFAST AT THIS TIME. WILL CONTINUE TO PROVIDE DIET, MONITOR PT PROGRESS. RD FOLLOWING
[2018-06-25 10:08] LABS: LYMPHOCYTES 4 % (15-50); MONOCYTES 2 % (2-11); NEUTROPHILS 86 % (40-80); PLATELET ESTIMATE NORMAL
[2018-06-25 10:09] LABS: ROULEAUX OCC
--- NOTE | 2018-06-25 11:20 | NUR ---
PLACED ON BIPAP AT THIS TIME. O2 SAT WAS 86% ON 12L OF O2 VIA HIGH FLOW NC.
--- NOTE | 2018-06-25 11:52 | NUR ---
BACK OFF BIPAP AT THIS TIME. MEAL TRAY SET UP. DAUGHTER IN ROOM ASSISTING PT WITH MEAL.
--- NOTE | 2018-06-25 13:00 | NUR ---
PT RESTING IN BED ON BIPAP. MONITORS ON AND WORKING, VITALS STABLE, CALL LIGHT WITHIN REACH WILL CONTINUE TO OBSERVE.
--- NOTE | 2018-06-25 15:00 | NUR ---
NO CHANGES, FAMILY AT BEDSIDE, UPDATE PROVIDED, MONITORS ON AND WORKING. SEE FLOW SHEET FOR FURTHER DETIALS, CALL LIGHT WITHIN REACH. WILL CONTINUE TO OBSERVE.
--- NOTE | 2018-06-25 17:00 | NUR ---
NO CHANGES. PT REMAINS ON BIPAP, VITALS STABLE. CALL LIGHT WITHIN REACH. WILL CONTINUE TO OBSERVE.
[2018-06-25 20:18] LABS: APPEARANCE HAZY (CLEAR); BILIRUBIN NEGATIVE (NEGATIVE); COLOR YELLOW (YELLOW); EPITHELIAL CELLS 0-5 /hpf (0-5); GLUCOSE NEGATIVE (NEGATIVE); KETONE NEGATIVE (NEGATIVE); NITRITE NEGATIVE (NEGATIVE); PROTEIN 1+ mg/dL (NEGATIVE); RED CELLS - URINE 25-50 /hpf (0-5); SPECIFIC GRAVITY 1.015 (1.005-1.020); UROBILINOGEN NORMAL (NORMAL); WHITE CELLS - URINE OCC /hpf (0-5)
--- NOTE | 2018-06-25 20:48 | NUR ---
vss no s/s of distress family at bedside, pt states discomfort with her mar, mar was cleaned and flushed to check for patiency, meds were given all needs met at this time, will continue to monitor.
[2018-06-26] VITALS (20 sets, daily range): BP systolic 103–169; BP diastolic 55–98
--- NOTE | 2018-06-26 | NUR ---
pt continues to complain about mar discomfort, pt repositioned, will continue to monitor.
[2018-06-26 05:56] LABS: HEMATOCRIT 31.5 % (36.0-48.0); HEMOGLOBIN 11.1 g/dL (12-16); MCH 30.6 pg (26.0-34.0); MCHC 35.2 g/dL (31.0-37.0); MCV 86.8 fL (80.0-100.0); MEAN PLATELET VOLUME 9.8 fL (7.4-10.4); PLATELET COUNT 274 10x3/uL (130-400); RBC 3.63 10x6/uL (4.00-5.40); RDW 15.5 % (11.5-14.5); WBC 36.2 10x3/uL (4.8-10.8)
--- NOTE | 2018-06-26 06:14 | NUR ---
meds given, iv pumps cleared mar emptied, pt positioned for comfort, pt needs met all safety meaures in place will continue to monitor
[2018-06-26 06:21] LABS: ANION GAP 15.8 mmol/L (8-16); CALCIUM 7.8 mg/dL (8.5-10.1); CARBON DIOXIDE 19.2 mmol/L (21.0-32.0); CREATININE - SERUM 2.1 mg/dL (0.6-1.3)
--- NOTE | 2018-06-26 07:10 | NUR ---
REPORT RECEIVED FROM CONSERVATION ASSISTANT AND CARE ASSUMED. PATIENT LAYING IN BED AWAKE AND ALERT. VITAL SIGNS ARE GOOD. PATIENT DENIES ANY NEEDS OR PAIN. ASSESSMENT COMPLETED. WILL CONTINUE TO MONITOR CLOSELY.
[2018-06-26 08:25] LABS: EOSINOPHILS 1 % (0-7); MONOCYTES 5 % (2-11); NEUTROPHILS 86 % (40-80); PLATELET ESTIMATE NORMAL; TOXIC GRANULATION OCC
[2018-06-26 08:26] LABS: ANISOCYTOSIS OCC
--- NOTE | 2018-06-26 09:30 | NUR ---
DTR AT BEDSIDE. PATIENT COMPLAINS OF SOB. RT IN ROOM GIVING UPDRAFT. PATIENT ALSO COMPLAINS OF BURNING AND SHARP PAIN THAT IS WORSENING AT [place].NO SWELLING, DC NOTED AT CARLTON INSERTION. CARLTON DRAINGING DARK GOLD CONCENTRATED URINE. REPOSTIONED PATIENT FOR COMFORT. ANSWERED DTR QUESTIONS TO SATISFACTION. WILL CONTINEU TO MONITOR CLOSELY.
--- NOTE | 2018-06-26 11:00 | NUR ---
REASSESMENT COMPLETED. PATIENT LAYING IN BED . REPSITONED FOR COMFORT. RT TO ROOM FOR TREATMENT. WILL CONTINUE TO MONITOR.
--- NOTE | 2018-06-26 13:00 | NUR ---
DR HICKS TO ROOM. NEW ORDER FOR REQUIP AND CONSULT NEPHROLOGY AND HEMATOLOGY.
--- NOTE | 2018-06-26 15:30 | NUR ---
DR DOHERTY TO ROOM. NO NEW ORDERS RECIEVED. PATIENT DENIES ANY NEEDS OR PAIN. SR UP X 2 BED IN LOW POSITION AND CALL LIGHT IN REACH.
--- NOTE | 2018-06-26 16:30 | NUR ---
DR CANALES IN ROOM. NEW ORDERS RECIEVED. PATIENT HAD LARGE LIQUID BROWN STOOL. PATIENT BATHED, GOWN AND BEDDING CHANGED. RT DIN ROOM AND BIPAP ON . WILL CONTINUE TO MONITOR.
--- NOTE | 2018-06-26 19:00 | NUR ---
IN BED RESTING QUIETLY WITH EYES CLOSED. FAMILY MEMBERS AT BEDSIDE. ALERT AND ORIENTED X4. VS STABLE AND AFEBRILE. ON BIPAP 40l. TOLERATING WELL. NO VISUAL CUES OF DISTRESS NOTED. DENIES ANY OTHER NEEDS AT THIS TIME. BED LOW, SIDE RAILS UP X2. CALL LIGHT IN REACH. WILL CONTINUE TO MONITOR.
--- NOTE | 2018-06-26 19:13 | NUR ---
REPORT GIVEN TO CARPET FLOOR LAYER APPRENTICE.PATIENT LAYING IN BED ON BACK WITH EYES CLOSED AND BREATHING EVENLY. PATIENT IS STABLE. NO DISTRESS NOTED. SR UP X 2, BED IN LOW POSITON AND CALL LIGHT IN REACH.
[2018-06-27] VITALS (31 sets, daily range): BP systolic 76–170; BP diastolic 36–96
[2018-06-27 04:52] LABS: HEMATOCRIT 30.1 % (36.0-48.0); HEMOGLOBIN 10.7 g/dL (12-16); MCH 30.7 pg (26.0-34.0); MCHC 35.5 g/dL (31.0-37.0); MCV 86.2 fL (80.0-100.0); PLATELET COUNT 252 10x3/uL (130-400); RBC 3.49 10x6/uL (4.00-5.40); RDW 15.4 % (11.5-14.5); WBC 53.1 10x3/uL (4.8-10.8)
[2018-06-27 05:08] LABS: ANION GAP 17.5 mmol/L (8-16); CALCIUM 7.8 mg/dL (8.5-10.1); CARBON DIOXIDE 16.7 mmol/L (21.0-32.0); CREATININE - SERUM 2.1 mg/dL (0.6-1.3); POTASSIUM - SERUM 4.2 mmol/L (3.5-5.1); VANCOMYCIN - RANDOM 23.2 ug/mL (10.0-20.0)
[2018-06-27 05:27] LABS: LYMPHOCYTES 5 % (15-50); MONOCYTES 1 % (2-11); NEUTROPHILS 91 % (40-80); PLATELET ESTIMATE NORMAL
--- NOTE | 2018-06-27 07:10 | NUR ---
REPORT RECEIVED FROM EXECUTIVE SOUS CHEF. PATIENT LAYING ON BACK AWAKE AND ALERT X 3. PATIENT HAS LARGE AMOUNT LIQUID BROWN STOOL. PATIENT CLEANED, FULL LINEN CHANGE AND PATIENT REPOSITIONED FOR COMFORT. PATIENT ON HIGH FLOW METER AT 6 L. PATIENT C/O BEING SOB WITH EXERTION. O2 SAT 94%. RT NOTIFIED. INSTRUCTED TO KEEP PATIENT HOB ELEVATED AND EMCOURAGE PATIENT TO TAKE DEEP SLOW BREATHS. WILL CONTINUE TO MONITOR PATIENT VERY CLOSELY. SR UP X 2 BED IN LOW POSITON AND CALL LIGHT IN REACH.
--- NOTE | 2018-06-27 07:30 | NUR ---
PATIENT WITH WITH LARGE AMOUNT OF BROWN LIQIUD STOOL. PATIENT CLEANED, LINEN CHANGED AND REPOSITIONED FOR COMFORT. PATIENT VERY DYSNPNEIC WITH EXERTION O2 SAT 89% PER RT, REPOSITONED PATIENT TO HOB WITH HOB ELEVATED . SAT IMPROVED TO 91%. WILL CAITLIN NUE TO MONITOR VERY CLOSELY. ASSESMENT COMPLETED.
--- NOTE | 2018-06-27 08:10 | NUR ---
PATIENT WITH BROWN LIQUID STOOL. PATIENT CLEANED AND LINEN CHANGED. FAMILY AT BEDSIDE AND PATIENT WITH RESP. OF 28 AND 0Z SAT AT 91%. SAFETY MEASURES IN PLACE AND MONITORING PATIENT CONDITION CLSELY.
--- NOTE | 2018-06-27 09:00 | NUR ---
PATIENT COMPLAINS OF SOB . PATIENT CURRENTLY ON HF NC AT 6L. RESP 38. O2 SAT 90. PATIENT MOVING HEAD BACK AND FORTH, TRYING TO GET UP OUT OF BED, PULLING AT GOWN.OFFERED PATIENT REASSURANCE AND ENCOURAGED SLOW DEEP BREATHING. RT TO ROOM. PATIENT BACK ON BIPAP.
--- NOTE | 2018-06-27 10:30 | NUR ---
PATIENT CONTINUES TO BE AGITATED. 02 SAT 89. RT TO ROOM. DR SOTOMAYOR IN ROOM. NEW ORDER RECEIVED FOR ATIVAN 0.5 MG PO PRN ANXIETY AND AGITATION. RX GIVEN TO PATIENT. WILL CONTINUE TO MONITOR CLOSELY.
--- NOTE | 2018-06-27 10:45 | NUR ---
DR HAMM TO ROOM. NEW ORDERS RECIEVED.
--- NOTE | 2018-06-27 11:30 | NUR ---
PATIENT CONTINUES AGITATION. PULLING AT BIPAP MASK AND ROLLING HEAD BACK AND FORTH. 02 SAT 90.
--- NOTE | 2018-06-27 12:00 | NUR ---
DR FARLEY TO ROOM. NEW ORDERS RECIEVED. FAMILY IN ROOM. PATIENT AGITATED. RESP 39. PATIENT FIDGETING .
--- NOTE | 2018-06-27 13:30 | NUR ---
PATIENT DENIES ANY PAIN. PATIENT REQUESTING BIPAP BE REMOVED. RT CALLED TO ROOM. EXPLAINED TO PATIENT THAT BIPAP IS NEEDED. PATIENT UNABLE TO REMAIN STILL. RESP 40. CALLED DR SOTOMAYOR. INFORMED OF PATIENT STATUS . INSTRUCTED TO CALL DR HAMM FOR ANY NEW ORDERS. SPOKE WITH DR HAMM AND INSTRUCTED TO CONTINUE CURRENT THERAPIES AND CONTINUE TO MONITOR.
[2018-06-27 13:47] LABS: APPEARANCE CLEAR (CLEAR); BILIRUBIN NEGATIVE (NEGATIVE); COLOR AMBER (YELLOW); GLUCOSE NEGATIVE (NEGATIVE); KETONE NEGATIVE (NEGATIVE); NITRITE NEGATIVE (NEGATIVE); PROTEIN 1+ mg/dL (NEGATIVE); UROBILINOGEN NORMAL (NORMAL)
[2018-06-27 13:48] LABS: AMORPHOUS SEDIMENT <1+ /lpf (NONE SEEN); BACTERIA MANY /hpf (NONE SEEN); EPITHELIAL CELLS OCC /hpf (0-5); HYALINE CAST OCC /lpf (NONE SEEN); MUCUS <1+ /lpf (NONE SEEN)
--- NOTE | 2018-06-27 15:00 | NUR ---
FAMILY IN ROOM. PATIENT UNABLE TO LAY STILL. MOVING HEAD BACK AND FORTH. GAVE PRN RX OF ATIVAN 0.5 MG IV. WILL CONTINUE TO MONITOR.
[2018-06-27 15:17] LABS: AMYLASE - SERUM 361 U/L (25-115); LIPASE 1565 U/L (73-393)
--- NOTE | 2018-06-27 17:30 | NUR ---
PATIENT HAS INCREASING AGITATION. RESP 40. O2 SAT 84.CALLED RT TO ROOM. SPOKE WITH CHARGE NURSE LAVELLE SOSA. HE CALLED DR HAMM WHO ORDERED STATE ABG. ABNORMAL ABG RESULTS REPORTED TO DR HAMM. DR HAMM ORDERED INTUBATION WITH MECHANICAL VENTILATION. LAVELLE SOSA CONTACTED APPRORIATE PERSONNEL. INFORMED THAT DR POE WILL COME TO UNIT TO PERFORM INTUBATION.
--- NOTE | 2018-06-27 18:00 | NUR ---
CONTINUING TO MONITOR PATIENT AWAITNG INTUBATION. RT IN ROOM.
--- NOTE | 2018-06-27 18:15 | NUR ---
Les POE REQUESTED A BMP - ENTERED
[2018-06-27 18:37] LABS: ANION GAP 15.1 mmol/L (8-16); CALCIUM 7.6 mg/dL (8.5-10.1); CREATININE - SERUM 2.2 mg/dL (0.6-1.3); POTASSIUM - SERUM 4.1 mmol/L (3.5-5.1)
--- NOTE | 2018-06-27 18:40 | NUR ---
DR POE TO ROOM. INTUBATION WITH MECHANICAL VENTILATION PERFORMED. PATIENT IS SEDATED . RESP 32. O2 SAT 96. WILL CONTINUE TO MONITOR.
--- NOTE | 2018-06-27 19:07 | NUR ---
REPORT RECEIVED, CARE ASSUMED. PT SEDATED AND INTUBATED ON THE VENT WITH EYES CLOSED. REPOSITIONED PT FOR COMFORT. NO SIGNS OF ACUTE DISTRESS. WILL CONTINUE TO MONITOR.
--- NOTE | 2018-06-27 21:07 | NUR ---
PT REPOSITIONED FOR COMFORT. PT BP IS LOW, SPOKE WITH DR EVERETT AND RECEIVED ORDERS. NO SIGNS OF ACUTE DISTRESS. WILL CONTINUE TO MONITOR.
--- NOTE | 2018-06-27 23:08 | NUR ---
REASSESSMENT COMPLETED, SEE FLOWSHEET. NO ACUTE CHANGES NOTED. NO SIGNS OF ACUTE DISTRESS. WILL CONTINUE TO MONITOR.
[2018-06-28] VITALS (77 sets, daily range): BP systolic 87–131; BP diastolic 38–72
--- NOTE | 2018-06-28 01:07 | NUR ---
PT IS IN BED SEDATED AND INTUBATED ON THE VENT. NO ACUTE CHANGES NOTED AT THIS TIME. NO SIGNS OF ACUTE DISTRESS. WILL CONTINUE TO MONITOR.
--- NOTE | 2018-06-28 03:07 | NUR ---
REASSESSMENT COMPLETED, SEE FLOWSHEET. PT RESTING IN BED WITH EYES CLOSED AT THIS TIME. NO SIGNS OF ACUTE DISTRESS. WILL CONTINUE TO MONITOR.
--- NOTE | 2018-06-28 03:07 | NUR ---
REASSESSMENT COMPLETED, SEE FLOWSHEET. PT REMAINS SEDATED AND INTUBATED ON THE VENT AT THIS TIME. NO SIGNS OF ACUTE DISTRESS. WILL CONTINUE TO MONITOR.
[2018-06-28 04:14] LABS: ALBUMIN 1.6 g/dL (3.4-5.0); ANION GAP 16.7 mmol/L (8-16); BILIRUBIN - TOTAL 1.19 mg/dL (0.2-1.3); CALCIUM 7.6 mg/dL (8.5-10.1); CARBON DIOXIDE 20.7 mmol/L (21.0-32.0); CREATININE - SERUM 2.6 mg/dL (0.6-1.3); MAGNESIUM - SERUM 2.5 mg/dL (1.8-2.4); POTASSIUM - SERUM 4.4 mmol/L (3.5-5.1); PROTEIN - SERUM 4.5 g/dL (6.4-8.2); VANCOMYCIN - RANDOM 21.8 ug/mL (10.0-20.0)
[2018-06-28 04:19] LABS: HEMATOCRIT 27.9 % (36.0-48.0); HEMOGLOBIN 9.9 g/dL (12-16); MCH 30.4 pg (26.0-34.0); MCHC 35.5 g/dL (31.0-37.0); MCV 85.6 fL (80.0-100.0); MEAN PLATELET VOLUME 9.9 fL (7.4-10.4); PLATELET COUNT 263 10x3/uL (130-400); RBC 3.26 10x6/uL (4.00-5.40); RDW 15.3 % (11.5-14.5); WBC 54.3 10x3/uL (4.8-10.8)
[2018-06-28 04:27] LABS: LYMPHOCYTES 1 % (15-50); NEUTROPHILS 93 % (40-80); PLATELET ESTIMATE NORMAL
[2018-06-28 04:28] LABS: PLATELET MORPHOLOGY GIANT PLTS PRESENT
--- NOTE | 2018-06-28 05:09 | NUR ---
PT RESTING IN BED SEDATED AND INTUBATED ON VENT. PT REPOSITIONED FOR COMFORT. ORAL CARE AND SUCTIONING PERFORMED. NO SIGNS OF ACUTE DISTRESS. WILL CONTINUE TO MONITOR.
--- NOTE | 2018-06-28 07:10 | NUR ---
REPORT RECIEVED FROM LINE CONSTRUCTION SUPERINTENDENT PATIENT CARE ASSUMED. PATIENT LAYING ON BACK SEDATED AND ON VENT. NO SIGNS OR DISTRESS NOTED. ORAL CARE PROVIDED. WILL CONTINUE TO MONITOR.
--- NOTE | 2018-06-28 07:30 | NUR ---
PATIENT ASSESMENT COMPLETED.CONTINUING TO MONITOR VERY CLOSELY. [facility] PRECUATIONS IN PLACE
--- NOTE | 2018-06-28 08:00 | NUR ---
PHONE CALL FROM DR HAMM. INFORMED THAT HE WILL PERFORM A BRONCHOSCOPY TODAY AND PREPARE THE CONSENTS. CONSENTS PREPARED AND SIGNED BY PATIENTS DAUGHTER.
--- NOTE | 2018-06-28 08:30 | NUR ---
PATIENT MOVING HEAD BACK AND FORTH, PULLING UP HANDS AND ATTEMPTING TO SPIT OUT ET TUBE. INCREASED PROPOFOL DRIP TO 35 MCG/KG/MIN. MOVEMENTS CONTINUING, INCEREASE PROPOFOL TO 40 MCG/KG/MIN. PATIENT RESTING COMFORTABLY AND VITAL SIGNS ARE GOOD. FAMILY AT BEDSIDE. WILL CONTINUE TO MONITOR CLOSLY.
--- NOTE | 2018-06-28 08:45 | NUR ---
DR FARLEY IN ROOM. FAMILY IS PRESENT. NEW ORDERS RECIEVED.
--- NOTE | 2018-06-28 11:30 | NUR ---
REASSESMENT COMPLETED. DR SOTOMAYOR TO ROOM. NEW ORDERS RECIEVED. PATIENT UNCHANGED. WILL CONTINUE TO MONITOR.
--- NOTE | 2018-06-28 11:45 | NUR ---
DR HAMM TO ROOM. NO NEW ORDERS RECIEVED. DR HAMM SPENT SEVERAL MINUTES WITH PATIENTS FAMILY DISCUSSING CONDITION AND ASWERING QUESTIONS TO FAMALIES SATISFACTION. PATIENT STABLE AND UNCHAGED. WILL CONTINUE TO MONITOR CLOSELY.
--- NOTE | 2018-06-28 13:00 | NUR ---
PATIENT TEMP IS 101.2. MEDICATED PER MAR WITH ACETIMENAPHEN 650 MG SUPP. IN ADDITION KDC/D FECAL MANAGEMENT SYSTEM. WILL CONTINUE TO MONITOR PATIENT.
--- NOTE | 2018-06-28 13:20 | NUR ---
DR GARCIA TO ROOM. NO NEW ORDERS RECIEVED.
--- NOTE | 2018-06-28 13:45 | NUR ---
PATIENT TO CT IMAGING VIA BED WITH HOSPITAL PERSONNEL . PATIENT VITAL SIGNS ARE STABLE PATIENT SEDATED AND MECAHNICALLY VENTILATED DURING SCAN BY RESPIRATORY THERAPY. PATIENT BACK TO ROOM. VITAL SIGNS ARE SGTABLE AND PATIENT TOLERATED WELL.
--- NOTE | 2018-06-28 14:00 | NUR ---
PATIENT TEMP NOW 99.WILL CONTINUE TO MONITOR .
--- NOTE | 2018-06-28 15:00 | NUR ---
PATIENT UNDERWENT BEDSIDE BRONCHOSCOPY WITH DR HAMM AND RT. TOOK APPROXIMATELY 10 MINUTES . WASHINGS WERE TAKEN FOR CULTURE. PATIENT VITAL SIGNS REMAINED STABLE AND PT TOLERATED WELL. WILL CONTINUE TO MONITOR.
--- NOTE | 2018-06-28 19:07 | NUR ---
REPORT RECEIVED, CARE ASSUMED. INITIAL ASSESSMENT COMPLETED. NO SIGNS OF ACUTE DISTRESS. WILL CONTINUE TO MONITOR.
--- NOTE | 2018-06-28 21:04 | NUR ---
PT RESTING IN BED SEDATED AND INTUBATED ON THE VENT AT THIS TIME. FAMILY AT BEDSIDE, UPDATE GIVEN. NO FURTHER NEEDS NOTED AT THIS TIME. NO SIGNS OF ACUTE DISTRESS. WILL CONTINUE TO MONITOR.
--- NOTE | 2018-06-28 23:09 | NUR ---
REASSESSMENT COMPLETED, SEE FLOWSHEET. NO ACUTE CHANGES NOTED. NO SIGNS OF ACUTE DISTRESS. WILL CONTINUE TO MONITOR.
[2018-06-29] VITALS (34 sets, daily range): BP systolic 99–132; BP diastolic 45–78
--- NOTE | 2018-06-29 01:07 | NUR ---
PT RESTING IN BED SEDATED AND INTUBATED ON VENT. PT REPOSITIONED FOR COMFORT. NO ACUTE CHANGES NOTED. NO SIGNS OF ACUTE DISTRESS. WILL CONTINUE TO MONITOR.
--- NOTE | 2018-06-29 03:07 | NUR ---
REASSESSMENT COMPLETED, SEE FLOWSHEET. PT REPOSITIONED FOR COMFORT. NO ACUTE CHANGES NOTED. NO SIGNS OF ACUTE DISTRESS. WILL CONTINUE TO MONITOR.
--- NOTE | 2018-06-29 05:04 | NUR ---
PT REPOSITIONED IN BED FOR COMFORT. NO ACUTE CHANGES NOTED. NO SIGNS OF ACUTE DISTRESS. WILL CONTINUE TO MONITOR.
[2018-06-29 05:10] LABS: HEMATOCRIT 24.6 % (36.0-48.0); HEMOGLOBIN 8.7 g/dL (12-16); MCH 30.5 pg (26.0-34.0); MCHC 35.4 g/dL (31.0-37.0); MCV 86.3 fL (80.0-100.0); MEAN PLATELET VOLUME 10.3 fL (7.4-10.4); PLATELET COUNT 236 10x3/uL (130-400); RBC 2.85 10x6/uL (4.00-5.40); RDW 15.7 % (11.5-14.5); WBC 48.3 10x3/uL (4.8-10.8)
[2018-06-29 05:21] LABS: ANION GAP 20.2 mmol/L (8-16); BILIRUBIN - TOTAL 1.96 mg/dL (0.2-1.3); CALCIUM 7.7 mg/dL (8.5-10.1); CARBON DIOXIDE 18.4 mmol/L (21.0-32.0); POTASSIUM - SERUM 4.6 mmol/L (3.5-5.1); PROTEIN - SERUM 5.2 g/dL (6.4-8.2); VANCOMYCIN - RANDOM 18.7 ug/mL (10.0-20.0)
[2018-06-29 05:40] LABS: ALBUMIN 2.3 g/dL (3.4-5.0); CREATININE - SERUM 3.7 mg/dL (0.6-1.3)
[2018-06-29 05:44] LABS: EOSINOPHILS 1 % (0-7); LYMPHOCYTES 6 % (15-50); MONOCYTES 2 % (2-11); NEUTROPHILS 85 % (40-80); PLATELET ESTIMATE NORMAL; PLATELET MORPHOLOGY GIANT PLTS PRESENT
--- NOTE | 2018-06-29 07:00 | NUR ---
SHIFT ASSESSMENT COMPLETED, PT CARE ASSUMED. MONITORS ON AND WORKING, VITALS STABLE. PT SEDATED ON VENT, CARLTON STAT LOCKED IN PLACE. NO SIGNS/SYMPTOMS OF PAIN OR DISCOMFORT NOTED AT THIS TIME. WILL CONTINUE TO OBSERVE.
--- NOTE | 2018-06-29 09:58 | NUR ---
NUTRITION F/U PT SEDATED ON VENT. DIPRIVAN @ 19 CC/HR PROVIDING 501 KCAL PER DAY. PROCALAMINE @ 50 CC/HR PROVIDING 294 KCAL, [address] GM PROTEIN [address] DAY. RD FOLLOWING
[2018-06-29 10:41] LABS: AMYLASE - SERUM 161 U/L (25-115); LIPASE 393 U/L (73-393)
[2018-06-29 18:42] LABS: HEMATOCRIT 28.7 % (36.0-48.0); HEMOGLOBIN 9.8 g/dL (12-16)
[2018-06-30] VITALS (23 sets, daily range): BP systolic 97–118; BP diastolic 42–58
[2018-06-30 06:03] LABS: BASOPHILS 0.2 % (0-2); EOSINOPHILS 0 % (0-7); HEMATOCRIT 28.8 % (36.0-48.0); IMMATURE GRANULOCYTES 2.6 % (0-5); LYMPHOCYTES 2.7 % (15-50); MCH 30.3 pg (26.0-34.0); MCHC 34.7 g/dL (31.0-37.0); MCV 87.3 fL (80.0-100.0); MEAN PLATELET VOLUME 10.5 fL (7.4-10.4); MONOCYTES 4.1 % (2-11); NEUTROPHILS 90.4 % (40-80); PLATELET COUNT 202 10x3/uL (130-400); RDW 15.9 % (11.5-14.5); WBC 45.7 10x3/uL (4.8-10.8)
[2018-06-30 06:27] LABS: ALBUMIN 2.3 g/dL (3.4-5.0); ANION GAP 20.9 mmol/L (8-16); BILIRUBIN - TOTAL 4.13 mg/dL (0.2-1.3); CALCIUM 7.7 mg/dL (8.5-10.1); CARBON DIOXIDE 17.7 mmol/L (21.0-32.0); CREATININE - SERUM 4.8 mg/dL (0.6-1.3); PHOSPHOROUS 6.4 mg/dL (2.5-4.9); POTASSIUM - SERUM 5.6 mmol/L (3.5-5.1); VANCOMYCIN - RANDOM 15.2 ug/mL (10.0-20.0)
--- NOTE | 2018-06-30 09:00 | NUR ---
PT TURNED AND REPOSITIONED FOR COMFORT. NO SIGNS/SYMPTOMS OF PAIN OR DISCOMFORT NOTED AT THIS TIME. WILL CONTINUE TO OBSERVE.
--- NOTE | 2018-06-30 09:45 | NUR ---
NUTRITION F/U ORDERS WRITTEN TO START TUBE FEEDS PER MD REQUEST. WILL MONITOR PT PROGRESS, ADVANCE TUBE FEEDS /WHEN APPROPRIATE. RD FOLLOWING
--- NOTE | 2018-06-30 11:00 | NUR ---
NO CHANGES, PT TURNED AND REPOSITIONED FOR COMFORT. SEE FLOW SHEET FOR FURTHER DETAILS, WILL CONTINUE TO OBSERVE.
--- NOTE | 2018-06-30 13:00 | NUR ---
PT TURNED AND REPOSITONED. MONITORS ON AND WORKING, VITALS STABLE. NO SIGNS/SYMPTOMS OF PAIN OR DISCOMFORT AT THIS TIME. WILL CONTINUE TO OBSREVE.
[2018-06-30 13:19] LABS: EBV - EARLY ANTIGEN AB IGG <9.0 U/mL (0.0-8.9); EBV VIRAL CAPSID AB IGM <36.0 U/mL (0.0-35.9)
[2018-06-30 14:12] LABS: BILIRUBIN - DIRECT 3.89 mg/dL (0.00-0.30)
[2018-06-30 14:23] LABS: ERYTHROPOIETIN 172.8 mIU/mL (2.6-18.5)
[2018-06-30 14:24] LABS: BILIRUBIN - INDIRECT 0.83 mg/dL (0.00-1.00); BILIRUBIN - TOTAL 4.72 mg/dL (0.2-1.3)
--- NOTE | 2018-06-30 15:00 | NUR ---
CONSENT OBTAINED FOR TRIALYSIS CATH PLACEMENT, PT TOLERATED WELL. NO CHANGES, SEE FLOW SHEET FOR FURTHER DETAILS. WILL CONTINUE TO OBSERVE.
--- NOTE | 2018-06-30 15:01 | EC ---
PATIENT:TAVO HICKEY DATE OF SERVICE: 06/17/18 SEX: F MEDICAL RECORD: [id number] DATE OF : 43 LOCATION:[place] [address] AGE OF PATIENT: 73 ADMISSION DATE: 06/17/18 REFERRING PHYSICIAN: INTERPRETING PHYSICIAN: RAMAN GRIFFITH MD ECHOCARDIOGRAM REPORT ECHO CHARGES 4 ECHO COMPLETE Date: 06/28/18 CLINICAL DIAGNOSIS: CHF ? ECHOCARDIOGRAPHIC MEASUREMENTS (adult normal given) AC root (d.<3.7cm) 3.0 cm LV Septum d (<1.2 cm> 1.2 cm Valve Excursion 1.4 cm LV Septum (systole) 1.4 cm Left Atria (s.<4.0cm> 4.1 cm LVPW d(<1.2cm) 1.2 cm RV (d.<2.3cm) 2.8 cm LVPW (sytole) 1.8 cm LV diastole(<5.6CM) 4.4 cm MV E-F(>70mm/sec) cm LV systole 2.6 cm LVOT Diameter 1.5 cm MV exc.(>10mm) cm Est.ejection fraction (50-75%) % DOPPLER: LVIT cm/sec A cm/sec E 127 cm/sec LA cm/sec RVSP 66.2 mmHg LVOT 178 cm/sec AOP1/2T m/s Asc. Ao 201 cm/sec RVOT 93.0 cm/sec RA cm/sec PA 125 cm/sec AV Gradient Peak 16.2 mmHg AV Mean 9.2 mmHg AV Area 1.5 cm MV Gradient Peak 8.8 mmHg MV Mean 2.8 mmHg MV Area cm COMMENTS: Trial Paralegal: Fadia DENNISOE Sumo Wrestler: 3 Dr. Charles TAPE# PACS Pericardial Effusion N DATE OF SERVICE: 06/29/2018 Adequate 2-D echo, color flow and spectral Doppler, M-mode LVH is present. LV internal dimensions are normal. Wall motion is normal. EF is greater than or equal to 55%. Aortic valve is tricuspid. No evidence of stenosis by Doppler interrogation. Left atrium is upper limits of normal to mildly dilated at 4.1 cm. Mitral valve shows no prolapse. Mild MR. RV internal dimensions are normal. Right atrium is dilated. Severe TR. PA pressure is estimated greater than or equal to 66 mmHg via the continuity ECHOCARDIOGRAM REPORT [id number] TAVO HICKEY. TRANSINT:[id number] Voice Confirmation ID: [id number] DOCUMENT ID: [id number] RAMAN GRIFFITH MD at 1501 CC: [id number] DICTATION DATE: 06/29/18 1034 WET AND DRY SUGAR BIN OPERATOR: 06/29/18 1321 ADM IN [place] [id number] [place] [address]
[2018-06-30 19:11] LABS: ACID FAST SMEAR Negative (()); AFB SPECIMEN PROCESSING Concentration (())
[2018-07-01] VITALS (24 sets, daily range): BP systolic 102–126; BP diastolic 40–61
[2018-07-01 06:07] LABS: INR 1.89 (0.85-1.17)
[2018-07-01 06:15] LABS: HEMATOCRIT 26.1 % (36.0-48.0); HEMOGLOBIN 9.2 g/dL (12-16); MCH 30.8 pg (26.0-34.0); MCHC 35.2 g/dL (31.0-37.0); MCV 87.3 fL (80.0-100.0); MEAN PLATELET VOLUME 10.6 fL (7.4-10.4); PLATELET COUNT 170 10x3/uL (130-400); RBC 2.99 10x6/uL (4.00-5.40); WBC 45.2 10x3/uL (4.8-10.8)
[2018-07-01 06:35] LABS: ANION GAP 24.3 mmol/L (8-16); BILIRUBIN - TOTAL 5.39 mg/dL (0.2-1.3); CALCIUM 7.4 mg/dL (8.5-10.1); CARBON DIOXIDE 17.3 mmol/L (21.0-32.0); CREATININE - SERUM 4.4 mg/dL (0.6-1.3); MAGNESIUM - SERUM 2.7 mg/dL (1.8-2.4); PHOSPHOROUS 6.1 mg/dL (2.5-4.9); POTASSIUM - SERUM 5.6 mmol/L (3.5-5.1)
[2018-07-01 06:40] LABS: ALBUMIN 3.1 g/dL (3.4-5.0)
--- NOTE | 2018-07-01 07:00 | NUR ---
SHIFT ASSESSMENT COMPLETED, PT CARE ASSUMED. MONITORS ON AND WORKING, VITALS STABLE. PT SEDATED ON VENT, NO SIGNS/SYMPTOMS OF PAIN OR DISCOMFORT NOTED AT THIS TIME, WILL CONTINUE TO OBSERVE.
[2018-07-01 07:55] LABS: LYMPHOCYTES 6 % (15-50); MONOCYTES 6 % (2-11); NEUTROPHILS 74 % (40-80)
[2018-07-01 07:56] LABS: ANISOCYTOSIS OCC; PLATELET ESTIMATE NORMAL; SMUDGE CELLS 1+
[2018-07-01 08:22] LABS: HEPATITIS C ANTIBODY <0.1 S/CO RAT (0.0-0.9)
--- NOTE | 2018-07-01 09:00 | NUR ---
PT TURNED AND REPOSITIONED, FAMILY AT BEDSIDE, UPDATE PROVIDED, NO SIGNS/SYMPTOMS OF PAIN OR DISCOMFORT NOTED AT THIS TIME, WILL CONTINUE TO OBSERVE.
--- NOTE | 2018-07-01 09:30 | NUR ---
NUTRITION F/U PT REMAINS SEDATED ON VENT. PULMOCARE TO RUN AT 20 CC/HR, 25 CC H2O FLUSH Q 2 HOURS. PROCALAMINE AT 50 CC/HR. RD FOLLOWING
[2018-07-01 10:19] LABS: ANA REFLEX - DIRECT Negative (Negative)
--- NOTE | 2018-07-01 11:00 | NUR ---
PT TURNED AND REPOSITIONED FOR COMFORT, NO CHANGES, SEE FLOW SHEET FOR FURTHER DETAILS. WILL CONTINUE TO OBSERVE.
[2018-07-01 11:20] LABS: ANA REFLEX - DIRECT Negative (Negative)
--- NOTE | 2018-07-01 13:00 | NUR ---
PT TURNED AND REPOSITIONED. MONITORS ON AND WORKING, VITALS STABLE, FAMILY AT BEDSIDE, UPDATE PROVIDED. NO SIGNS/SYMPTOMS OF PAIN OR DISCOMFORT NOTED AT THIS TIME. WILL CONTINUE TO OBSERVE.
[2018-07-01 13:21] LABS: FUNGUS STAIN Final report (())
--- NOTE | 2018-07-01 15:00 | NUR ---
PT TURNED AND REPOSITIONED. NO CHANGES, CALL LIGHT WITHIN REACH, SEE FLOW SHEET FOR FURTHER DETAILS. WILL CONTINUE TO OBSERVE.
--- NOTE | 2018-07-01 16:42 | OP ---
PATIENT NAME: TAVO HICKEY MEDICAL RECORD: [id number] :43 LOCATION:[facility] D.2313 ADMISSION DATE:06/17/18 SURGEON: STACEY EVERETT MD DATE OF OPERATION: 06/28/2018 PROCEDURE: Fiberoptic bronchoscopy. INDICATION: Ms. Hickey is a 73-year-old female who was admitted with bilateral pneumonia. The patient has significant leukocytosis. The fiberoptic bronchoscopy was carried out to inspect the airway as well as to obtain the specimen for culture and sensitivity. PROCEDURE IN DETAIL: After conscious sedation, the fiberoptic bronchoscope was passed through the ET tube. The martine was sharp. The right main bronchus was normal. The subsegment to right upper lobe and right lower lobe within normal range. No endobronchial lesion was seen. There were bronchitic changes, which bled easily by touching by the bronchoscope. The left main bronchus was normal. The subsegment to the left upper lobe and left lower lobe within normal range. No endobronchial lesion was seen. Specimen washing was obtained and sent for routine culture sensitivity, AFB, fungus, and cytology. Overall, the patient tolerated procedure very well. TRANSINT:[id number] Voice Confirmation ID: [id number] DOCUMENT ID: [id number] STACEY EVERETT MD at 1642 CC: [id number] DICTATION DATE: 06/28/18 1818 ACTIVE DIRECTORY SYSTEMS ADMINISTRATOR: 06/28/18 2244 ADM IN [place] [id number] [place] [address]
--- NOTE | 2018-07-01 17:00 | NUR ---
FAMILY AT BEDSIDE, UPDATE PROVIDED, NO SIGNS/SYMPTOMS OF PAIN OR DISCOMFORT NOTED. WILL CONTINUE TO OBSERVE.
[2018-07-02] VITALS (30 sets, daily range): BP systolic 98–181; BP diastolic 43–81
--- NOTE | 2018-07-02 01:00 | NUR ---
PT IS NOT RESPONDING TO TOUCH OR SPEECH AT THIS TIME. V/S REMAIN STABLE. NO CHANGES IN PT CONDITION. REPOSITIONED FOR COMFORT. ORAL CARE PROVIDED. WILL CONT WITH POC.
--- NOTE | 2018-07-02 07:00 | NUR ---
REC'D REPORT AND RESUMED CARE, ETT OT VENTILATION AND SECURED, OGT WITH TF PULMOCARE INFUSING AT 30 CC/HR, RESIDUAL CHECK 5CC, HYPOACTIVE BOWEL SOUNDS HEARD, RIGHT IJ TRIALYSIS WITH NS AT KVO AND PROPOFAL AT 40 MCG/19.5 CC/HR, CARLTON TO GRAVITY WITH DARK DRAINAGE TO BAG, ASSESSMENT COMPLETED PER FLOWSHEET, SHOWING AFIB/MEREDITH ON MONITOR, ASSESSMENT COMPLETED PER FLOWSHEET, ORAL CARE AND SUCTION COMPLETE, REPOSITIONED TO RIGHT SIDE.
[2018-07-02 07:30] LABS: ALBUMIN 3.4 g/dL (3.4-5.0); ANION GAP 27.3 mmol/L (8-16); BILIRUBIN - TOTAL 6.98 mg/dL (0.2-1.3); CALCIUM 7.6 mg/dL (8.5-10.1); CARBON DIOXIDE 13.9 mmol/L (21.0-32.0); CREATININE - SERUM 5.4 mg/dL (0.6-1.3); PROTEIN - SERUM 5.1 g/dL (6.4-8.2); VANCOMYCIN - RANDOM 20.6 ug/mL (10.0-20.0)
[2018-07-02 07:59] LABS: PHOSPHOROUS 8.9 mg/dL (2.5-4.9)
--- NOTE | 2018-07-02 08:00 | NUR ---
PUPILS FIXED, SEDATION TITRATED TO 10 MCG, 4.8 CC/HR
[2018-07-02 08:03] LABS: POTASSIUM - SERUM 7.2 mmol/L (3.5-5.1)
--- NOTE | 2018-07-02 09:15 | NUR ---
MORNING MEDS GIVEN PER AUG FLOWSHEET
--- NOTE | 2018-07-02 09:52 | NUR ---
NUTRITION F/U CHART REVIEWED, SPOKE WITH NURSING. PULMOCARE INCREASED TO 40 CC/HR. EMIGDIO MONTANO'D. RECOMMEND GOAL RATE 40 CC/HR FOR TUBE FEEDS. RD FOLLOWING
[2018-07-02 10:20] LABS: HEPATITIS BE ANTIGEN Negative (Negative)
[2018-07-02 10:24] LABS: HEMATOCRIT 27.6 % (36.0-48.0); HEMOGLOBIN 9.4 g/dL (12-16); RBC 3.04 10x6/uL (4.00-5.40)
[2018-07-02 10:25] LABS: MCH 30.9 pg (26.0-34.0); MCHC 34.1 g/dL (31.0-37.0); MCV 90.8 fL (80.0-100.0); MEAN PLATELET VOLUME 11.2 fL (7.4-10.4); PLATELET COUNT 202 10x3/uL (130-400); RDW 16.1 % (11.5-14.5); WBC 52.7 10x3/uL (4.8-10.8)
[2018-07-02 10:59] LABS: ANISOCYTOSIS OCC; LYMPHOCYTES 3 % (15-50); MONOCYTES 4 % (2-11); NEUTROPHILS 82 % (40-80); POIKILOCYTOSIS OCC; POLYCHROMASIA OCC; SMUDGE CELLS OCC
[2018-07-02 11:00] LABS: PLATELET ESTIMATE NORMAL
--- NOTE | 2018-07-02 11:00 | NUR ---
NO ACUTE CHANGE FROM PREVIOUS ASSESSMENT, VSS, SPOKE WITH DAUGHTER JEANMARIE, STATUS UPDATED, VOICES NO NEEDS AT THIS TIME 1120 HD BEGAN, VSS
[2018-07-02 13:15] LABS: CREATINE KINASE 256 UL (21-215); PHOSPHOROUS 7.6 mg/dL (2.5-4.9)
[2018-07-02 15:31] LABS: MITOCHONDRIAL ANTIBODY 36.5 Units (0.0-20.0); SMOOTH MUSCLE ABS (ACTIN) 3 Units (0-19)
--- NOTE | 2018-07-02 16:41 | NUR ---
CONSENT SIGNED BY DAUGHTER FOR CHOLECYSTOSTOMY TBUE PLACEMENT
[2018-07-02 16:46] LABS: INR 2.24 (0.85-1.17); PROTIME 24.1 SECONDS (11.6-15.0)
[2018-07-02 17:15] LABS: ANCA - ANTIMYELOPEROXIDASE <9.0 U/mL (0.0-9.0); ANCA - ANTIPROTEINASE 3 <3.5 U/mL (0.0-3.5); ANCA - ATYPICAL <1:20 titer (Neg:<1:20); ANCA - CYTOPLASMIC <1:20 titer (Neg:<1:20); ANCA - PERINUCLEAR <1:20 titer (Neg:<1:20)
--- NOTE | 2018-07-02 18:15 | NUR ---
TO IR WITH PERSONNEL X3 WITH RT AND PORTABLE VENT IN USE
--- NOTE | 2018-07-02 19:30 | NUR ---
PT ARRIVED ON UNIT VIA IR TEAM. VSS. ICU MONITORS ON AND FUNCTIONING. RT AT BEDSIDE SECURING ETT AND ADJUSTING VENT SETTINGS. 1 OF 2 UN OF FFP INFUSING AT THIS TIME THROUGH R IJ TRIALYSIS CATH. R UPPER ABD DRESSING CDI, CHOLECYSTOSTOMY TUBE DRAINING DARK BROWN BILE. SHIFT ASSESSMENT COMPLETE. SEE FLOWSHEET FOR FURTHER DETAILS. VSS. WILL CONT CLOSE MONITORING IN ICU.
--- NOTE | 2018-07-02 21:10 | NUR ---
DAUGHTER AT BEDSIDE. ALL QUESTIONS ANSWERED. SHE DENIES ANY FURTHER NEEDS AT THIS TIME. REPOSITIONED FOR COMFORT. VSS. ORAL CARE PROVIDED. WILL CONT WITH POC.
--- NOTE | 2018-07-02 23:00 | NUR ---
REASSESSMENT COMPLETE. PT DOES NOT RESPOND TO TOUCH OR SPEECH. PUPILS ARE EQUAL BUT SLUGGISH. PROPOFOL INFUSING AT 10 MCG/KG/MIN. REPOSITIONED FOR COMFORT. S1S2 AUDIBLE, SINUS MEREDITH SHOWING ON MONITOR. CRACKLES HEARD BILAT THROUGHOUT ALL LOBES. CHOLECYSTOSTOMY TUBE DRAINING TO GRAVITY. WILL CONT TO MONITOR CLOSELY.
--- NOTE | 2018-07-02 23:15 | NUR ---
HOLDING PROPOFOL PER DR. REAVES'S ORDER. PT REMAINS UNRESPONSIVE TO TOUCH OR SPEECH.
[2018-07-03] VITALS: BP 109/42
[2018-07-03 01:00] VITALS: BP 112/42
--- NOTE | 2018-07-03 01:00 | NUR ---
REPOSITIONED FOR COMFORT. ORAL CARE PROVIDED. PT DID NOT RESPOND TO ORAL CARE OR MOVEMENT, SEDATION HAS REMAINED OFF. VSS. WILL CONT TO MONITOR CLOSELY. CHOLECYSTOSTOMY TUBE DRAINING TO GRAVITY.
[2018-07-03 02:00] VITALS: BP 106/46
[2018-07-03 03:00] VITALS: BP 81/38
[2018-07-03 03:08] LABS: HEMATOCRIT 24.3 % (36.0-48.0); HEMOGLOBIN 8.1 g/dL (12-16); MCH 30.2 pg (26.0-34.0); MCHC 33.3 g/dL (31.0-37.0); MCV 90.7 fL (80.0-100.0); MEAN PLATELET VOLUME 10.6 fL (7.4-10.4); PLATELET COUNT 171 10x3/uL (130-400); RBC 2.68 10x6/uL (4.00-5.40); RDW 16.1 % (11.5-14.5); WBC 52.8 10x3/uL (4.8-10.8)
[2018-07-03 03:23] LABS: ALBUMIN 3.5 g/dL (3.4-5.0); BILIRUBIN - TOTAL 8.33 mg/dL (0.2-1.3); CALCIUM 7.7 mg/dL (8.5-10.1); CARBON DIOXIDE 10.9 mmol/L (21.0-32.0); CREATININE - SERUM 5.3 mg/dL (0.6-1.3); PROTEIN - SERUM 5.9 g/dL (6.4-8.2); VANCOMYCIN - RANDOM 18.5 ug/mL (10.0-20.0)
[2018-07-03 03:25] LABS: ANION GAP 32.7 mmol/L (8-16); POTASSIUM - SERUM 6.6 mmol/L (3.5-5.1)
--- NOTE | 2018-07-03 03:30 | NUR ---
PAGEJose REAVES DUE TO WIDENING QRS COMPLEX AND DECREASED HR.
--- NOTE | 2018-07-03 03:36 | NUR ---
SPOKE WITH DR. REAVES. NEW ORDERS RECIEVED.
--- NOTE | 2018-07-03 03:40 | NUR ---
PAGEJose REAVES DUE TO DECREASED HR AND WIDENING QRS COMPLEX.
[2018-07-03 03:45] LABS: EOSINOPHILS 2 % (0-7); LYMPHOCYTES 10 % (15-50); MONOCYTES 6 % (2-11); NEUTROPHILS 74 % (40-80)
[2018-07-03 03:46] LABS: PLATELET ESTIMATE NORMAL
--- NOTE | 2018-07-03 03:57 | NUR ---
MED CODE INITIATED. ACLS PROTOCOL STARTED. SEE CODE SHEET FOR FURTHER DETAILS.
--- NOTE | 2018-07-03 03:59 | NUR ---
IAN BUENO CALLED AND UPDATED PT'S DAUGHTER ON CHANGE OF PT STATUS.
[2018-07-03 04:21] VITALS: BP 0/0
--- NOTE | 2018-07-03 04:21 | NUR ---
PT PRONOUNCED . POST MORTEM CARE IN PROGRESS.
[2018-07-03 05:17] LABS: HEPATITIS BE ANTIBODY Negative (Negative)
--- NOTE | 2018-07-03 06:37 | NUR ---
FAMILY ARRIVED AT BEDSIDE.
--- NOTE | 2018-07-03 09:15 | NUR ---
PICKE UP BY [facility] AT 0915, COPY OF RECORD GIVEN , NOOTHR NEEDS AT THIS TIME
--- NOTE | 2018-07-03 10:55 | MORECARE ---
CASE MANAGEMENT DISCHARGE SUMMARY PATIENT: TAVO HICKEY UNIT: [id number] ADM DATE: 06/17/18 AGE: 73 : 44 SEX: F ROOM/BED: D.2313 AUTHOR: JEANA,DOC PHYSICIAN: REFERRING PHYSICIAN: PETROS JHA MD DATE OF SERVICE: 07/03/18 Discharge Plan Patient Name: TAVO HICKEY Facility: [facility]:[place] : 1945 Planned Disposition: Anticipated Discharge Date: Discharge Date: 07/03/2018 Expected LOS: Initial Reviewer: [email or web address] Initial Review Date: 06/22/2018 Generated: 07/03/18 11:55 am Comments DCP- Discharge Planning Updated by [email or web address]: Monika Boyle on 06/22/18 5:[address] LATE ENTRY 06/22/18 @ 1215 Patient Name: TAVO HICKEY Admission Status: Urgent Accout number: [id number] Admission Date: 06-17-2018 : 1945 Admission Diagnosis:PNEUMONIA, UNSPECIFIED ORGANISM Attending: PETROS JHA Current LOS: 5 Anticipated DC Date: Planned Disposition: Primary Insurance: MEDICARE A & B Discharge Planning Comments: CM met with patient and daughter at bedside. Patient is currently on BIPAP and unable to speak but patients daughter Jeanmarie was able to answer intake questions. Patient lived at home with spouse prior to admission until recently. Patients spouse has dementia and has had to be placed in [place] in [place]. Patient will be going home alone when discharged. Jeanmarie states she has just worn herself out trying to take care of him. Patient may need some services upon discharge or possibly home . CM will continue to follow and assist as needed with discharge planning / needs. Machine Sizer: Monika Boyle DCPIA - Discharge Planning Initial Assessment Updated by [email or web address]: Monika Boyle on 06/22/18 5:52 pm * Is the patient Alert and Oriented? Yes * How many steps to enter\exit or inside your home? * PCP KB * Pharmacy [facility] * Preadmission Environment Home Alone * ADLs Independent * Equipment None * List name and contact numbers for known caregivers / representatives who currently or will assist patient after discharge: JEANMARIE MONTE - DAUGHTER - [phone] * Verbal permission to speak to the caregivers and representatives has been obtained from the patient. N/A * Community resources currently utilized None * Additional services required to return to the preadmission environment? No * Can the patient safely return to the preadmission environment? Yes * Has this patient been hospitalized within the prior 30 days at any hospital? No Last DP export: 06/22/18 5:12 pm Patient Name: TAVO HICKEY Page [id number] at 1055 All edits/amendments must be made on the electronic document DICTATION DATE: 07/03/18 105 SALES DEVELOPMENT CONSULTANT: JONG 07/03/18 105 RPT#: [id number] NC DATE:07/03/18 STATUS: DIS IN [facility] [address] [place] [address] END OF REPORT
[2018-07-07 14:15] LABS: FUNGUS CULTURE RESULT 1 Candida pelliculosa (()); FUNGUS MYCOLOGY CULTURE Preliminary report (())
--- NOTE | 2018-07-09 15:18 | NUR ---
Per CMS protocol, restraint report logged into data base.
== END 2018-07-03 09:15 | DRG 207 ==
LOC: D.MS 12:27 → D.ICU 13:20 → D.MS 13:20 → D.ICU 06-21 01:24
PROVIDERS: Family Medicine; General Practice; Internal Medicine; Internal Medicine Gastroenterology; Internal Medicine Hematology & Oncology; Internal Medicine Pulmonary Disease; Surgery; ADMIT Internal Medicine Nephrology
PROC: 02HV33Z Insertion of Infusion Device into Superior Vena Cava, Percutaneous Approach (ICD-10-PCS; 2018-06-20)
PROC: 5A1955Z Respiratory Ventilation, Greater than 96 Consecutive Hours (ICD-10-PCS; principal; 2018-06-27)
PROC: 0BH17EZ Insertion of Endotracheal Airway into Trachea, Via Natural or Artificial Opening (ICD-10-PCS; 2018-06-27)
PROC: 3E1F88X Irrigation of Respiratory Tract using Irrigating Substance, Via Natural or Artificial Opening Endoscopic, Diagnostic (ICD-10-PCS; 2018-06-28)
PROC: 0F9430Z Drainage of Gallbladder with Drainage Device, Percutaneous Approach (ICD-10-PCS; 2018-07-02)
DX: J18.9 Pneumonia, unspecified organism (principal); N17.0 Acute kidney failure with tubular necrosis; K85.90 Acute pancreatitis without necrosis or infection, unspecified; J80 Acute respiratory distress syndrome; E87.2 Acidosis; N39.0 Urinary tract infection, site not specified; E87.1 Hypo-osmolality and hyponatremia; R18.8 Other ascites; I10 Essential (primary) hypertension; I48.91 Unspecified atrial fibrillation; E78.5 Hyperlipidemia, unspecified; E03.9 Hypothyroidism, unspecified; D64.9 Anemia, unspecified; G47.00 Insomnia, unspecified; K81.9 Cholecystitis, unspecified; R74.8 Abnormal levels of other serum enzymes; T46.2X1A Poisoning by other antidysrhythmic drugs, accidental (unintentional), initial encounter; K74.60 Unspecified cirrhosis of liver; E87.5 Hyperkalemia; D72.829 Elevated white blood cell count, unspecified; K59.00 Constipation, unspecified; R19.7 Diarrhea, unspecified; E87.70 Fluid overload, unspecified